=== PATIENT | male | born 1980 ===

== ENCOUNTER 2022-01-06 05:30 | Day surgery (SDC) | payer OTHER ==
[~2022-01-06] VITALS: Ht 175.3 cm; Wt 113.4 kg
[2022-01-06] MEDS ORDERED: PERCOCET 5-3251 EACH PO (12:00)
[2022-01-06] MEDS ORDERED: NEURONTIN600 M1 PO (12:03)
[2022-01-06] MEDS ORDERED: POLY119PG PO (12:03)
== END 2022-01-06 14:35 | disposition home or self-care (01) ==
LOC: CIR.AMB 05:30
PROVIDERS: ATTEND Surgery
DX: K40.20 Bilateral inguinal hernia, without obstruction or gangrene, not specified as recurrent (principal); K42.0 Umbilical hernia with obstruction, without gangrene; Z86.16 Personal history of COVID-19; E11.9 Type 2 diabetes mellitus without complications; Z20.822 Contact with and (suspected) exposure to COVID-19